=== PATIENT | female | born 1980 | race Caucasian/White ===

== ENCOUNTER 2016-07-25 14:30 | Emergency (ER) | payer MEDICAID ==
[~2016-07-25] VITALS: Ht 172.7 cm; Wt 86.2 kg
[2016-07-25 16:33] VITALS: BP 125/76
== END 2016-07-25 16:33 | disposition home or self-care (01) ==
LOC: ED 14:30
DX: M54.42 Lumbago with sciatica, left side (principal)
CPT/HCPCS: J2270; J2405; J7030

== ENCOUNTER 2016-10-30 01:12 | Emergency (ER) | payer MEDICAID ==
[2016-10-30 02:03] LABS: PLATELET COUNT 289 x10^3mcL (130-400); RED CELL DISTRIBUTION WIDTH 13.4 % (11.5-14.5)
[2016-10-30 02:06] LABS: BASOPHIL % 3.2 % (0-2)
[2016-10-30 02:12] LABS: CALCIUM 8.1 mg/dL (8.5-10.1); CARBON DIOXIDE 23.8 mmol/L (21-32); CHLORIDE SERUM 107 mmol/L (98-107); CREATININE SERUM 0.6 mg/dL (0.6-1.0); GFR1 > 60 mL/min; GLUCOSE SERUM 106 mg/dL (74-106); POTASSIUM SERUM 3.7 mmol/L (3.5-5.1); SODIUM SERUM 139 mmol/L (136-145)
[2016-10-30 02:16] LABS: ALKALINE PHOSPHATASE 69 U/L (46-116); ALT/SGPT 24 U/L (14-59); AST/SGOT 16 U/L (15-37); BILIRUBIN TOTAL 0.19 mg/dL (0.20-1.00); LIPASE 124 IU/L (73-393); TOTAL PROTEIN, SERUM 6.4 g/dL (6.4-8.2)
[2016-10-30 02:17] LABS: ALBUMIN 2.9 g/dL (3.4-5.0)
[2016-10-30 03:32] VITALS: BP 104/72
== END 2016-10-30 03:32 | disposition home or self-care (01) ==
LOC: ED 01:12
PROVIDERS: Emergency Medicine
DX: R07.89 Other chest pain (principal); K29.70 Gastritis, unspecified, without bleeding; R03.0 Elevated blood-pressure reading, without diagnosis of hypertension; Z90.49 Acquired absence of other specified parts of digestive tract; M54.30 Sciatica, unspecified side
CPT/HCPCS: 36415; Q0092; Q0162

== ENCOUNTER 2018-03-07 00:17 | Emergency (ER) | payer MEDICAID ==
[~2018-03-07] VITALS: Ht 165.1 cm; Wt 81.6 kg
[~2018-03-07 00:17] MED LIST: IBUPROFEN600 MG PO; LAC PO; LEVAQUIN250 M1 PO; PYR200 PO
[2018-03-07 00:29] VITALS: Ht 165.1 cm; Wt 81.6 kg
[2018-03-07 01:03] LABS: CALCIUM 8.3 mg/dL (8.5-10.1); CHLORIDE SERUM 106 mmol/L (98-107); CREATININE SERUM 0.7 mg/dL (0.6-1.0); GFR1 > 60 mL/min; GLUCOSE SERUM 130 mg/dL (74-106); POTASSIUM SERUM 3.5 mmol/L (3.5-5.1); SODIUM SERUM 139 mmol/L (136-145)
[2018-03-07 01:05] LABS: BASOPHIL % 0.3 % (0-2); PLATELET COUNT 316 x10^3mcL (130-400); RED CELL DISTRIBUTION WIDTH 13.4 % (11.5-14.5)
[2018-03-07 01:08] LABS: ALBUMIN 3.5 g/dL (3.4-5.0); ALKALINE PHOSPHATASE 82 U/L (46-116); ALT/SGPT 29 U/L (14-59); AST/SGOT 17 U/L (15-37); BILIRUBIN TOTAL 0.25 mg/dL (0.20-1.00); TOTAL PROTEIN, SERUM 7.5 g/dL (6.4-8.2)
[2018-03-07 02:03] VITALS: BP 115/76
== END 2018-03-07 02:03 | disposition home or self-care (01) ==
LOC: ED 00:17
PROVIDERS: Emergency Medicine
DX: B34.9 Viral infection, unspecified (principal); F17.210 Nicotine dependence, cigarettes, uncomplicated
CPT/HCPCS: 36415; 87804; J1885; Q0162

== ENCOUNTER 2018-07-24 20:56 | Emergency (ER) | payer MEDICAID ==
[~2018-07-24] VITALS: Ht 165.1 cm; Wt 90.3 kg
[2018-07-24 21:08] VITALS: BP 136/79; Ht 165.1 cm; Wt 90.3 kg
== END 2018-07-24 23:22 | disposition home or self-care (01) ==
LOC: ED 20:56
DX: B35.4 Tinea corporis (principal)

== ENCOUNTER 2019-10-28 16:14 | Emergency (ER) | payer SELFPAY ==
[~2019-10-28] VITALS: Ht 165.1 cm; Wt 86.2 kg
[2019-10-28 16:43] VITALS: Ht 165.1 cm; Wt 86.2 kg
[2019-10-28 17:56] LABS: BASOPHIL % 0.7 % (0-2); PLATELET COUNT 287 x10^3mcL (130-400); RED CELL DISTRIBUTION WIDTH 14.1 % (11.5-14.5)
[2019-10-28 18:05] LABS: CALCIUM 8.7 mg/dL (8.5-10.1); CARBON DIOXIDE 23.2 mmol/L (21-32); CHLORIDE SERUM 103 mmol/L (98-107); CREATININE SERUM 0.7 mg/dL (0.6-1.0); GFR1 > 60 mL/min; GLUCOSE SERUM 97 mg/dL (74-106); POTASSIUM SERUM 3.6 mmol/L (3.5-5.1); SODIUM SERUM 136 mmol/L (136-145)
[2019-10-28 18:10] LABS: ALBUMIN 3.6 g/dL (3.4-5.0); ALKALINE PHOSPHATASE 78 U/L (46-116); ALT/SGPT 31 U/L (14-59); AST/SGOT 15 U/L (15-37); BILIRUBIN TOTAL 0.47 mg/dL (0.20-1.00); LIPASE 71 IU/L (73-393); TOTAL PROTEIN, SERUM 7.5 g/dL (6.4-8.2)
[2019-10-28 19:35] VITALS: BP 122/81
== END 2019-10-28 19:35 | disposition home or self-care (01) ==
LOC: ED 16:14
PROVIDERS: Emergency Medicine
DX: N94.6 Dysmenorrhea, unspecified (principal); D25.9 Leiomyoma of uterus, unspecified; Z98.890 Other specified postprocedural states
CPT/HCPCS: J2270; J2405; J7030; Q0092